=== PATIENT | female | born 1980 | race American Indian/Alaskan Native ===

== ENCOUNTER 2020-12-20 11:45 | Emergency (ER) | payer SELFPAY ==
[2020-12-20 13:06] LABS: Basophils % (Auto) 0.3 % (0.0-1.8); Eosinophils # (Auto) 0.1 K/mm3 (0.0-0.4); Eosinophils % (Auto) 2.1 % (0.0-4.3); Hematocrit 37.1 % (30.3-42.9); Hemoglobin 12.4 gm/dl (10.1-14.3); Lymphocytes % (Auto) 24.6 % (13.4-35.0); Mean Corpuscular HGB Conc 33 % (30-34); Mean Corpuscular Volume 87 fl (79-97); Monocytes # (Auto) 0.2 K/mm3 (0.0-0.8); Monocytes % (Auto) 5.9 % (0.0-7.3); Platelet Count 281 K/mm3 (140-440); Red Blood Count 4.29 M/mm3 (3.65-5.03)
[2020-12-20 13:45] LABS: Alanine Aminotransferase 21 units/L (7-56); Albumin 4.7 g/dL (3.9-5); Blood Urea Nitrogen 15 mg/dL (7-17); Calcium 9.6 mg/dL (8.4-10.2); Hemolysis Index 15
[2020-12-20 13:57] LABS: BUN/Creatinine Ratio 21
[2020-12-20] MEDS ORDERED: GLUCAGON (HUMAN RECOMBINANT) 1 MG/ML INJ IV ONE (14:15)
[2020-12-20] MEDS ORDERED: SODIUM CHLORIDE 0.9% 1000 ML 1,000 ML IV ONE ×2 (14:15→17:18)
--- NOTE | 2020-12-20 14:19 | Emergency Department Report ---
<NICKJESSY KRISHNAN - Last Filed: 12/20/20 21:39> ED General Adult HPI - General Chief complaint: Weakness Stated complaint: GENERAL WEAKNESS Time Seen by Provider: 12/20/20 13:49 Source: patient, EMS Mode of arrival: Stretcher Limitations: No Limitations - History of Present Illness Initial comments: 40-year-old female patient presents to the emergency department with complaints of generalized weakness, nausea, decreased appetite, and fatigue for 3 days. No known sick contacts. No current steroid or antibiotic use. No recent travel. No history of similar symptoms. No new medications. Patient is not sexually active. She has not taken any medications for her symptoms. No preceding fall, trauma, injury. Last menstrual period was earlier in November. Last bowel movement was 2 days ago. Denies fever, chills, chest pain, abdominal pain, pelvic pain, cough, shortness of breath, wheezing, headache, vomiting, diarrhea, urinary symptoms. Denies all other complaints at this time. - Related Data Previous Rx's Medication Instructions Recorded Last Taken Type Ondansetron [Zofran Odt] 4 mg PO Q8HR #20 tab.rapdis 12/20/20 Unknown Rx Allergies Allergy/AdvReac Type Severity Reaction Status Date / Time No Known Allergies Allergy Unverified 12/20/20 11:52 ED Review of Systems Other: GENERAL: Positive for fatigue and decreased appetite. ENT: Negative for ear pain, difficulty hearing, sore throat, nasal congestion, epistaxis. CARDIOVASCULAR: Negative for chest pain, palpitations, lower extremity swelling. PULMONARY: Negative for cough, dyspnea, wheezing, orthopnea, cyanosis. GASTROINTESTINAL: Positive for nausea MUSCULOSKELETAL: Negative for joint pain, joint swelling, myalgias, back pain, neck pain. NEUROLOGICAL: Positive for generalized weakness. INTEGUMENTARY: Negative for erythema, rash, diaphoresis, laceration, ecchymosis. HEMATOLOGICAL: Negative for hemoptysis, hematemesis, hematochezia, hematuria. PSYCHIATRIC: Negative for hallucinations, suicidal ideation, homicidal ideation, anxiety, depression. ED Past Medical Hx - Past Medical History Previous Medical History?: Yes - Surgical History Additional Surgical History: gallbladder, c-sectionx2, - Social History Smoking Status: Never Smoker - Medications Home Medications: Home Medications Medication Instructions Recorded Confirmed Last Taken Type Ondansetron [Zofran Odt] 4 mg PO Q8HR #20 tab.kirandis 12/20/20 Unknown Rx ED Physical Exam - General Limitations: No Limitations - Other Other exam information: General: Awake and alert. Appears fatigued. Head: Atraumatic, normocephalic. Eyes: EOMI. Pupils are equal and round. Normal sclera and conjunctiva. ENT: Oral mucosa is dry. Normal pharyngeal exam. Neck: Supple. No lymphadenopathy. Pulmonary: No respiratory distress. Clear to auscultation bilaterally. Cardiac: Tachycardic. Pulses are palpable and equal bilaterally. No lower extremity cyanosis or edema. Skin: Warm and dry. No rashes. Abdomen: Soft, non-tender, non-protuberant. No guarding, rigidity, or rebound. Bowel sounds are normal. No organomegaly or masses noted. Back: Normal alignment. No CVA tenderness. Extremities: Symmetrical. Full range of motion intact. Neurological: Alert and oriented, appropriately interactive, no focal deficits. Psych: Cooperative. Appropriate mood and affect. Speech is evenly metered. Thoughts are logically construed. ED Medical Decision Making - Lab Data Result diagrams: 12/20/20 12:23 12/20/20 12:23 - EKG Data 12/20/20 15:22 EKG shows normal sinus rhythm with a ventricular rate of 78 bpm. Normal axis. Normal NM interval. Normal QT interval. Good R wave progression. Early repolarization pattern noted. No ST segment changes. Over read by attending emergency physician, who agrees with this interpretation. - Medical Decision Making Differential diagnosis including but not limited to: dehydration, electrolyte abnormality, anemia, hypoglycemia, diabetes, On reevaluation, patient remains stable. Tachycardia resolved. No further vomiting however patient continues to endorse nausea and fatigue. Labs suggestive of dehydration with elevated BUN/creatinine ratio, elevated anion gap, and low CO2. Patient has not yet produced a urine sample however serum test is negative. Denies illicit drug and alcohol use. Mild hypoglycemia noted; patient has no known history of diabetes, endorses decreased PO intake over the last few days. Given IV Glucagon. Will repeat FSBS and attempt PO challenge. Patient will receive a second liter of IV fluids, additional dose of antiemetics, and will be reevaluated prior to final disposition. Case discussed with Kalani Zepeda PA-C, pending urinalysis results and repeat evaluation prior to final disposition. ED Disposition Clinical Impression: Dehydration, Nausea Disposition: DC-01 TO HOME OR SELFCARE Condition: Stable Instructions: Dehydration, Adult, Rehydration, Adult, Nausea, Adult, [id number], Preventing Hypoglycemia, Hypoglycemia Prescriptions: Ondansetron [Zofran Odt] 4 mg PO Q8HR #20 tab.kirandis Referrals: PRIMARY CARE, [Primary Care Provider] - 3-5 Days [facility] [Provider Group] - 3-5 Days <KALANI ZEPEDA - Last Filed: 12/20/20 23:35> ED Review of Systems ROS: Stated complaint: GENERAL WEAKNESS Other details as noted in HPI ED Course Vital Signs 12/20/20 12/20/20 11:52 20:20 Temperature 97.8 F Pulse Rate 105 H 86 Respiratory 18 17 Rate Blood Pressure 128/77 Blood Pressure 123/77 [Left] O2 Sat by Pulse 100 100 Oximetry ED Medical Decision Making - Lab Data Result diagrams: 12/20/20 12:23 12/20/20 12:23 - Medical Decision Making 40-year-old female presents emerged department complaining of weakness and fatigue as well as nausea evaluated by Nick was requested to follow-up on her urinalysis and reevaluate her after second fluid bolus. Patient had 2 urinary episodes the urinalysis did remain clear. She is tolerating p.o. in the form of drinking 5 orange juice and her blood sugar is 60 she does report an improvement. Patient is concerned of urinary tract and an infection reporting increased urinary urgency and and some burning and tingling with with urination and increased bladder pressure but no bleeding or vaginal discharge. Her examination was the was benign and urinalysis was clear. Will discharge patient home with antiemetics and advised to follow-up with primary care provider and to continue to eating to ensure her blood sugar maintains a normal level Critical care attestation.: If time is entered above; I have spent that time in minutes in the direct care of this critically ill patient, excluding procedure time. ED Disposition Is pt being admited?: No Does the pt Need Aspirin: No
[2020-12-20] MEDS: ONDANSETRON 4 MG/2 ML INJ IV ONE ×2 (17:29→19:25)
[2020-12-20] MEDS ORDERED: ONDANSETRON 4 MG/2 ML INJ IV ONE (17:32)
[2020-12-20 22:02] VITALS: BP 123/77
[2020-12-20 22:19] LABS: Bilirubin,Urine NEG (Negative); Blood,Urine NEG (Negative); Color,Urine Yellow (Yellow); Mucus,Urine FEW /HPF; Urobilinogen,Urine < 2.0 mg/dL (<2.0); WBC,Urine < 1.0 /HPF (0.0-6.0)
--- NOTE | 2020-12-21 14:16 | Electrocardiograph Report ---
[facility] Test Date: 2020-12-20 Test Time: 15:08:27 Pat Name: SHAWANDA PATIÑO Department: Room: Gender: F [employer] Supervisor: OSMEL : 1980 Requested By: FARNAZ DEL CASTILLO Order Number: [id number] Reading MD: Idris Resendez Measurements Intervals [place] Rate: 78 P: 77 VT: 168 QRS: 61 QRSD: 90 T: 42 QT: 403 QTc: 459 Interpretive Statements Sinus rhythm ST elev, probable normal early repol pattern No previous ECG available for comparison Electronically Signed On 12-21-2020 14:16:19 EDT by Idris Resendez
== END 2020-12-20 23:45 | disposition home or self-care (01) ==
LOC: ED 11:45
DX: E86.0 Dehydration (principal); R11.0 Nausea; Z98.890 Other specified postprocedural states; Z79.899 Other long term (current) drug therapy
CPT/HCPCS: 36415; 80053; 81001; 82962; 83735; 84100; 84484; 84703; 85025; 93005; 96361; 96374; 96375; 99284; J1610; J2405; J7030

== ENCOUNTER 2020-12-21 01:19 | Emergency (ER) | payer SELFPAY ==
[2020-12-21] MEDS ORDERED: ONDANSETRON 4 MG/2 ML INJ IV ONE (08:00)
[2020-12-21] MEDS ORDERED: SODIUM CHLORIDE 0.9% 1000 ML 1,000 ML IV ONE (08:00)
[2020-12-21] MEDS ORDERED: PANTOPRAZOLE 40 MG INJ IV ONE (08:00)
--- NOTE | 2020-12-21 08:05 | Emergency Department Report ---
ED Abdominal Pain HPI - General Chief Complaint: Weakness Stated Complaint: GENERAL WEAKNESS Time Seen by Provider: 12/21/20 07:38 Source: patient, EMS Mode of arrival: Ambulatory Limitations: No Limitations - History of Present Illness Initial Comments: Patient is 40 years old female with no significant past medical history. Patient presented to the ER complaining of diffuse abdominal pain, nausea and vomiting and generalized weakness. Patient was seen here last night and found to be dehydrated given fluids however patient stated that she is not feeling well. Patient does have a strong smell of acetone however she denied any history of diabetes or alcohol recently. Patient denied any diarrhea. Patient stated that she is concerning about her urine looks very dark. She denied any fever or chills. MD Complaint: abdominal pain -: days(s) (2) Location: diffuse Severity scale (0 -10): 0 - Related Data Previous Rx's Medication Instructions Recorded Last Taken Type Ondansetron [Zofran Odt] 4 mg PO Q8HR #20 tab.rapdis 12/20/20 Unknown Rx Allergies Allergy/AdvReac Type Severity Reaction Status Date / Time No Known Allergies Allergy Unverified 12/20/20 11:52 ED Review of Systems ROS: Stated complaint: GENERAL WEAKNESS Other details as noted in HPI Comment: All other systems reviewed and negative Constitutional: denies: chills, fever Respiratory: denies: cough, shortness of breath, SOB with exertion Gastrointestinal: abdominal pain, nausea, vomiting Musculoskeletal: denies: back pain Neurological: weakness. denies: headache, numbness, paresthesias, confusion ED Past Medical Hx - Past Medical History Previous Medical History?: No - Surgical History Past Surgical History?: Yes Hx Cholecystectomy: Yes Additional Surgical History: gallbladder, c-sectionx2, - Social History Smoking Status: Never Smoker - Medications Home Medications: Home Medications Medication Instructions Recorded Confirmed Last Taken Type Ondansetron [Zofran Odt] 4 mg PO Q8HR #20 tab.rapdis 12/20/20 Unknown Rx ED Physical Exam - General Limitations: No Limitations General appearance: alert, in no apparent distress - Head Head exam: Present: atraumatic, normocephalic, normal inspection - Eye Eye exam: Present: normal appearance - ENT ENT exam: Present: mucous membranes dry - Neck Neck exam: Present: normal inspection, full ROM. Absent: tenderness, meningismus, lymphadenopathy, thyromegaly - Respiratory Respiratory exam: Present: normal lung sounds bilaterally - Cardiovascular Cardiovascular Exam: Present: regular rate, normal rhythm, normal heart sounds - GI/Abdominal GI/Abdominal exam: Present: soft, normal bowel sounds. Absent: distended, ten derness, guarding, rebound, rigid, organomegaly, mass, bruit, hernia - Extremities Exam Extremities exam: Present: normal inspection, full ROM, normal capillary refill. Absent: tenderness - Back Exam Back exam: Present: normal inspection, full ROM. Absent: CVA tenderness (R), CVA tenderness (L) - Neurological Exam Neurological exam: Present: alert, oriented X3, CN II-XII intact - Psychiatric Psychiatric exam: Present: normal mood - Skin Skin exam: Present: warm, dry, intact, normal color ED Course Vital Signs 12/21/20 12/21/20 12/21/20 06:02 08:01 10:08 Temperature 98.1 F 98 F Pulse Rate 94 H 90 Respiratory 20 18 18 Rate Blood Pressure 121/55 124/62 [Right] O2 Sat by Pulse 100 100 100 Oximetry ED Medical Decision Making - Lab Data Result diagrams: 12/21/20 10:52 12/21/20 10:52 - Radiology Data Radiology results: report reviewed - Medical Decision Making Patient is 40 years old female with no significant past medical history. Patient presented to the ER complaining of diffuse abdominal pain, nausea and vomiting and generalized weakness. Patient was seen here last night and found to be dehydrated given fluids however patient stated that she is not feeling well. Patient does have a strong smell of acetone however she denied any history of diabetes or alcohol recently. Patient denied any diarrhea. Patient stated that she is concerning about her urine looks very dark. She denied any fever or chills. Patient received normal saline and Zofran. Labs reviewed and show significant improvement of her anion gap from 26 to 17. No vomiting observed in the ER. CT abdomen and pelvis with IV contrast is unremarkable for acute finding. Patient advised to follow-up with her primary care physician in the next 2 to 3 days and to return to the ER if he develop any new symptoms. Critical care attestation.: If time is entered above; I have spent that time in minutes in the direct care of this critically ill patient, excluding procedure time. ED Disposition Clinical Impression: Acute abdominal pain, Acute dehydration, Acute nausea with nonbilious vomiting Disposition: TO HOME OR SELFCARE Is pt being admited?: No Condition: Stable Instructions: Nausea and Vomiting, Adult, Abdominal Pain, Adult, Dehydration, Adult Referrals: [facility] [Provider Group] - 3-5 Days
[2020-12-21 10:32] LABS: Bilirubin,Urine NEG (Negative); Blood,Urine NEG (Negative); Color,Urine Yellow (Yellow); Mucus,Urine FEW /HPF; Protein,Urine <15 mg/dL mg/dL (Negative)
[2020-12-21 10:44] LABS: Amphetamine Screen,Urine Negative; Benzodiazepines Screen,Urine Negative; Cannabinoid Screen,Urine Negative; Cocaine Screen,Urine Negative; Methadone Screen,Urine Negative; Opiate Screen,Urine Negative; RBC,Urine < 1.0 /HPF (0.0-6.0)
[2020-12-21 11:10] LABS: Hematocrit 35.6 % (30.3-42.9); Hemoglobin 12.5 gm/dl (10.1-14.3); Mean Corpuscular HGB Conc 35 % (30-34); Mean Corpuscular Volume 85 fl (79-97); Platelet Count 253 K/mm3 (140-440); Red Blood Count 4.19 M/mm3 (3.65-5.03)
[2020-12-21 11:18] LABS: Basophils % (Auto) 0.4 % (0.0-1.8); Eosinophils # (Auto) 0.1 K/mm3 (0.0-0.4); Eosinophils % (Auto) 3.4 % (0.0-4.3); Lymphocytes # (Auto) 1.5 K/mm3 (1.2-5.4); Lymphocytes % (Auto) 36.2 % (13.4-35.0); Monocytes # (Auto) 0.3 K/mm3 (0.0-0.8); Monocytes % (Auto) 7.4 % (0.0-7.3)
[2020-12-21 11:37] LABS: Alanine Aminotransferase 20 units/L (7-56); Albumin 4.3 g/dL (3.9-5); Blood Urea Nitrogen 8 mg/dL (7-17); Calcium 8.9 mg/dL (8.4-10.2); Hemolysis Index 9
[2020-12-21 11:38] LABS: BUN/Creatinine Ratio 13; Bilirubin,Direct < 0.2 mg/dL (0-0.2)
--- NOTE | 2020-12-21 14:19 | Cat Scan Report ---
CT ABDOMEN AND PELVIS WITH CONTRAST HISTORY: Abdominal pain COMPARISON: None TECHNIQUE: Routine abdominal and pelvic CT exam performed following intravenous contrast administrat ion.. All CT scans at this location are performed using CT dose reduction for ALARA by means of autom ated exposure control. FINDINGS: CT ABDOMEN: Lung Bases: No significant abnormality. Liver: No significant abnormality. Biliary: Gallbladder is surgically absent. Spleen: No significant abnormality. Unenlarged. Pancreas: No significant abnormality. Adrenals: No significant abnormality. Kidneys: No significant abnormality. Lymphatics: No lymphadenopathy. Vasculature: No significant abnormality. Bowel/Peritoneum: No significant abnormality. No free air. No free fluid. Normal appendix. CT PELVIC: : No significant abnormality. Lymphatics: No lymphadenopathy. Osseous Structures: No aggressive appearing osseous lesions. Additional Findings: None IMPRESSION: 1. No acute findings or findings to explain the patient's symptoms. Signer Name: Mark Aguero MD Signed: 12/21/2020 2:15 PM Workstation Name: [id number]
[2020-12-21 16:08] VITALS: BP 118/74
== END 2020-12-21 16:10 | disposition home or self-care (01) ==
LOC: ED 01:19
DX: E86.0 Dehydration (principal); R11.2 Nausea with vomiting, unspecified; R10.9 Unspecified abdominal pain; Z79.899 Other long term (current) drug therapy; Z90.49 Acquired absence of other specified parts of digestive tract; Z98.890 Other specified postprocedural states
CPT/HCPCS: 36415; 74177; 80048; 80076; 80307; 81001; 83690; 84703; 85025; 96361; 96374; 99284; C9113; J7030; Q9967; J2405